=== PATIENT | male | born 1930 | race Caucasian/White ===

== ENCOUNTER 2016-06-20 05:40 | Emergency (ER) | payer OTHER ==
--- NOTE | 2016-06-20 05:53 | PDOC ---
[id number]: " AMS, NOT TALKING, GURGLING" Time Seen by Provider: 06/20/16 05:51 - History of Present Illness Initial Comments: 06/20/16 05:56 This 86-year-old man with a history of severe Parkinson's and Lewy body dementia is brought in by ambulance with altered mental status. According to family and home health aid, patient awakened suddenly at approximately 4:30 AM shouting loudly. The patient, who has been having progressive difficulty with dysarthria secondary to his chronic illness , was not able to communicate the nature of his distress.EMS called .Prior to this, he was in his usual state of health without febrile illness; he ate dinner last night in the early evening and had normal bowel movement yesterday . There has been no recent vomiting/diarrhea. No recent cough or respiratory difficulties No recent change in medication dosage according to patient's . He has been given his medications as prescribed according to home health aide and family.. He has not seen his neurologist ([facility] [place])for "quite awhile" according to . Patient has had marked worsening of his mobility in recent weeks Patient is DNR No history of previous cardiac or respiratory illnesses Pt's PMD is Dr Carcamo Past History - Past Medical History Allergies/Adverse Reactions: Allergies Allergy/AdvReac Type Severity Reaction Status Date / Time Penicillins Allergy Verified 06/20/16 05:44 Home Medications: Ambulatory Orders Carbidopa/Levodopa [Sinemet Cr 25-100 Tablet] 1 each PO BID 02/27/16 Quetiapine Fumarate [Seroquel -] 50 mg PO HS 03/01/16 Acetaminophen Oral Solution [Tylenol 160mg/5mL Oral Solution -] 650 mg PO Q6H PRN #360 ml 06/20/16 Levofloxacin [Levaquin] 500 mg PO DAILY #7 tablet 06/20/16 Dementia: Yes - Psycho/Social/Smoking Cessation Hx Anxiety: No Suicidal Ideation: No Smoking Status: No Smoking History: Never smoked Have you smoked in the past 12 months: No Number of Cigarettes Smoked Daily: 0 Hx Alcohol Use: No Drug/Substance Use Hx: No Substance Use Type: None Review of Systems - Review of Systems Able to Perform ROS?: No *Physical Exam - Physical Exam Comments: GENERAL: Elderly patient, moaning continuously, will open eyes on command Vital signs as noted. HEAD: no signs of trauma. EYES: Pupils equal 2mm, round and reactive to light, sclera anicteric, conjunctiva clear with no pallor. ENT: dry mucous membranes. Ears normal, nares patent, oropharynx clear without exudates. NECK: nontender without lymphadenopathy, JVD, or masses. LUNGS: Breath sounds equal, clear to auscultation bilaterally. No wheeze/ crackles. HEART: Regular rate and rhythm, normal S1 and S2 without murmur or rub. ABDOMEN: firm with generalized guarding; no masses palpable moans louder when upper abdomen palpated EXTREMITIES: Normal range of motion, no edema. No clubbing or cyanosis. No cords, erythema, or tenderness. NEUROLOGICAL: GCS=E3+V2+M5=10 SKIN: cool, Dry, no rashes or lesions noted. ED Treatment Course - LABORATORY CBC & Chemistry Diagram: 06/20/16 06:00 06/20/16 06:00 Medical Decision Making - Medical Decision Making 06/20/16 06:21 This 86-year-old man with a history of Parkinson's and baseline difficulty with communication presents by ambulance with sudden onset of generalized moaning upon awakening at 4:30 AM this morning. Patient was his usual state of health prior to this. Vital signs notable for an axillary temperature 100.8F,HR 97/ min BP105/96, O2 sat on 2l/min of 97% . On physical exam, patient's abdomen is firm and he moans louder when upper abdomen is palpated Full sepsis workup will be undertaken with blood and urine cultures as well as lactate/CBC/chemistry profile/UA/ influenza swab . Stat noncontrast head CT as well as noncontrast abdominal/pelvic CT will be performed Care of this patient was signed out to incoming physician at end of shift *DC/Admit/Observation/Transfer Diagnosis at time of Disposition: Pneumonia Qualifiers: Pneumonia type: due to unspecified organism Laterality: bilateral Lung location : lower lobe of lung Qualified Code(s): J18.9 - Pneumonia, unspecified organism - Discharge Dispostion Condition at time of disposition: Fair - Prescriptions Prescriptions: Levofloxacin [Levaquin] 500 mg PO DAILY #7 tablet Acetaminophen Oral Solution [Tylenol 160mg/5mL Oral Solution -] 650 mg PO Q6H PRN #360 ml PRN Reason: Fever - Referrals Referrals: Walter Carcamo MD [Staff Physician] - Call tomorrow - Patient Instructions Printed Discharge Instructions: DI for Pneumonia -- Adult Additional Instructions: Today you were evaluated for increased agitation. The emergency room evaluation was notable for a fever as well as an increased white blood cell count indicating an infection. All of the testing for infection shows a there is a pneumonia in the bases of the lungs. This pneumonia is the likely cause of the fever as well as the agitation. Treatment in the hospital with IV antibiotics was discussed but the plan is to discharge home to treat with antibiotics there and to maintain comfort and a familiar environment. Be sure to give adequate liquids, and maintain good hydration as much as possible. Levaquin 500 mg daily is the antibiotic to treat the pneumonia. A prescription for Levaquin has been sent electronically to your pharmacy, and the pharmacist has been given the option to prescribe the pills or the liquid depending on what is available. Give Tylenol every 6 hours to prevent fever. It is advisable to give this for the first 24 hours, whether or not there is fever, more as a preventative for fever. After that, you can monitor for fever and give as needed. Preventing fever can help prevent confusion and agitation. Tomorrow, Tuesday, it is advised that you call Dr. Kelsey, your primary care physician for ongoing support with treatment at home. It is also advised that you call Kaia Archuleta, the hospital health care social worker, tomorrow morning to arrange home visiting nurse services or home hospice care. Kaia can be reached at [phone]. If you're having difficulty managing the treatment at home, you may return to the emergency department at any time. [id number] ambulance services are always available should he need them.
[2016-06-20 06:23] VITALS: BMI 25.8
[2016-06-20] MEDS ORDERED: KETOROLAC TROMETHAMINE 30 MG/1 ML VIAL IVPUSH ONE (06:38)
[2016-06-20] MEDS ORDERED: KETOROLAC TROMETHAMINE 30 MG/1 ML VIAL ONE (06:43)
[2016-06-20 07:02] LABS: URINE APPEARANCE CLEAR; URINE BILIRUBIN NEGATIVE (NEGATIVE); URINE COLOR YELLOW; URINE GLUCOSE (UA) NEGATIVE (NEGATIVE); URINE KETONE NEGATIVE (NEGATIVE); URINE LEUK ESTERASE NEGATIVE (NEGATIVE); URINE NITRITE NEGATIVE (NEGATIVE); URINE PROTEIN NEGATIVE (NEGATIVE); URINE UROBILINOGEN 2.0 E.U/dl E.U./dl (0.2-1.0)
[2016-06-20 07:04] LABS: BASOPHIL 0.4 % (0-2.0); EOSINOPHIL 0.6 % (0-4.5); MCH 31.2 pg (25.7-33.7); MCHC 33.6 g/dl (32.0-35.9); MEAN CELL VOLUME 92.9 fl (80-96); MEAN PLT VOLUME 9.3 fl (7.5-11.1); NEUTROPHILS 80.7 % (42.8-82.8); PLATELET COUNT 333 K/MM3 (134-434); RDW 13.5 % (11.9-15.9); WHITE BLOOD COUNT 17.2 K/mm3 (4.0-10.0)
[2016-06-20 07:12] LABS: URINE BLOOD 1+ (NEGATIVE)
[2016-06-20 07:13] LABS: INR 1.2 (0.82-1.09); PROTHROMBIN TIME (PATIENT) 13.3 SEC (9.98-11.88)
--- NOTE | 2016-06-20 07:13 | PDOC ---
*Physical Exam - Vital Signs Last Vital Signs Temp Pulse Resp BP Pulse Ox 100.7 F H 97 H 22 105/76 97 06/20/16 05:46 06/20/16 05:46 06/20/16 05:46 06/20/16 05:46 06/20/16 05:46 - Physical Exam Comments: 06/20/16 07:11 Patient is an 86-year-old man with a history of advanced Parkinson's. He lives at home with his and home health aid. This morning he was agitated and yelling, more than usual. He was brought to the ED for evaluation. In the ED he was noted to have a low-grade temperature to 100.8 axillary. On examination now he is currently calm. Workup for a possible source of fever is in progress. Patient was endorsed to me by Dr. Veronica Robertson at change of shift at 7 AM. Studies pending: Gen. laboratory workup Chest x-ray CT scan of the head CT scan of the abdomen and pelvis EKG Urinalysis Further plans pending results. ED Treatment Course - LABORATORY CBC & Chemistry Diagram: 06/20/16 06:00 06/20/16 06:00 - ADDITIONAL ORDERS Additional order review: Laboratory Results 06/20/16 06:00 Creatine Kinase Cancelled Troponin I Cancelled 06/20/16 06:00 Influenza Types A,B Antigen (MARY) - Final Nasopharyngeal Swab - Final - Medications Given in the ED: ED Medications Discontinued Medications Generic Name Dose Route Start Last Admin Trade Name Freq PRN Reason Stop Dose Admin Ketorolac Tromethamine 30 mg 06/20/16 06:38 06/20/16 06:46 Toradol Injection - IVPUSH 06/20/16 06:39 30 mg ONCE ONE Administration Medical Decision Making - Medical Decision Making 06/20/16 08:12 Laboratory Results - last 24 hr 06/20/16 06/20/16 06/20/16 06:00 06:00 06:00 WBC RBC Hgb Hct MCV MCHC RDW Plt Count MPV Neutrophils % Lymphocytes % Monocytes % Eosinophils % Basophils % INR Sodium 141 Potassium 4.7 Chloride 104 Carbon Dioxide 28 Anion Gap 9 BUN 14 Creatinine 0.8 Creat Clearance w eGFR > 60 Random Glucose 126 H Lactic Acid Calcium 9.1 Total Bilirubin 0.7 AST 13 L ALT 14 Alkaline Phosphatase 100 Creatine Kinase Cancelled Troponin I Cancelled Total Protein 6.9 Albumin 3.1 L Lipase Urine Color Yellow Urine Appearance Clear Urine pH 5.0 Ur Specific [place] 1.023 Urine Protein Negative Urine Glucose (UA) Negative Urine Ketones Negative Urine Blood 1+ H Urine Nitrite Negative Urine Bilirubin Negative Urine Urobilinogen 2.0 e.u/dl Ur Leukocyte Esterase Negative Urine RBC 23 Urine WBC 4 Hyaline Casts 1 Urine Mucus Few 06/20/16 06/20/16 06/20/16 06:00 06:00 06:00 WBC 17.2 H RBC 4.77 Hgb 14.9 Hct 44.4 MCV 92.9 MCHC 33.6 RDW 13.5 Plt Count 333 MPV 9.3 Neutrophils % 80.7 Lymphocytes % 7.5 L Monocytes % 10.8 H Eosinophils % 0.6 Basophils % 0.4 INR 1.20 H Sodium Potassium Chloride Carbon Dioxide Anion Gap BUN Creatinine Creat Clearance w eGFR Random Glucose Lactic Acid Calcium Total Bilirubin AST ALT Alkaline Phosphatase Creatine Kinase Troponin I Total Protein Albumin Lipase 102 Urine Color Urine Appearance Urine pH Ur Specific [place] Urine Protein Urine Glucose (UA) Urine Ketones Urine Blood Urine Nitrite Urine Bilirubin Urine Urobilinogen Ur Leukocyte Esterase Urine RBC Urine WBC Hyaline Casts Urine Mucus 06/20/16 06/20/16 06:00 06:00 WBC RBC Hgb Hct MCV MCHC RDW Plt Count MPV Neutrophils % Lymphocytes % Monocytes % Eosinophils % Basophils % INR Sodium Potassium Chloride Carbon Dioxide Anion Gap BUN Creatinine Creat Clearance w eGFR Random Glucose Lactic Acid 1.848 Calcium Total Bilirubin AST ALT Alkaline Phosphatase Creatine Kinase 47 Troponin I < 0.02 Total Protein Albumin Lipase Urine Color Urine Appearance Urine pH Ur Specific [place] Urine Protein Urine Glucose (UA) Urine Ketones Urine Blood Urine Nitrite Urine Bilirubin Urine Urobilinogen Ur Leukocyte Esterase Urine RBC Urine WBC Hyaline Casts Urine Mucus Portable chest x-ray with some loss of the left diaphragm compared to baseline as well as bibasilar haziness. Officially read as left basilar infiltrate, but nonspecific. CT scan of the abdomen and pelvis shows right sided basilar consolidation with some air bronchograms consistent with right basilar pneumonia. There is also patchy infiltrate at the left base, less marked than on the right side. Laboratory studies notable for significant leukocytosis. Urinalysis negative for acute infection. Official reading of the CT abdomen and pelvis as well as the CT head is still pending. Patient is ALLERGIC to penicillin with both GI and other symptoms. Patient started on Levaquin for pneumonia with penicillin ALLERGY. *DC/Admit/Observation/Transfer Diagnosis at time of Disposition: Pneumonia Qualifiers: Pneumonia type: due to unspecified organism Laterality: bilateral Lung location : lower lobe of lung Qualified Code(s): J18.9 - Pneumonia, unspecified organism - Discharge Dispostion Condition at time of disposition: Fair Admit: Yes Decision to Admit order Date/Time: 06/20/16 08:18 endorsed to Zainab attending is Konrad
[2016-06-20 07:14] LABS: URINE HYALINE CAST 1 /lpf; URINE MUCUS FEW; URINE RBC 23 /hpf (0-3); URINE WBC 4 /hpf (3-5)
[2016-06-20] MEDS ORDERED: SODIUM CHLORIDE 1,000 ML IV SCH (07:15)
[2016-06-20 07:24] LABS: ALBUMIN 3.1 g/dl (3.4-5.0); ALK PHOS 100 U/L (45-117); ANION GAP 9 (8-16); BILIRUBIN,TOTAL 0.7 mg/dL (0.2-1.0); CALCIUM 9.1 mg/dL (8.5-10.1); CO2 28 mmol/L (21-32); CREATININE 0.8 mg/dL (0.7-1.3); GLUCOSE,RANDOM 126 mg/dL (74-106); SGPT/ALT 14 U/L (12-78); TOT PROT 6.9 g/dl (6.4-8.2)
[2016-06-20 07:26] LABS: TROPONIN I < 0.02 ng/ml (0.00-0.05)
[2016-06-20 07:30] LABS: SGOT/AST 13 U/L (15-37)
[2016-06-20] MEDS ORDERED: LEVOFLOXACIN 500 MG IVPB 100 ML IVPB ONE ×2 (08:02→08:06)
--- NOTE | 2016-06-20 08:16 | HP ---
CHIEF COMPLAINT: PCP: HISTORY OF PRESENT ILLNESS: ER course was notable for: (1) (2) (3) Recent Travel: PAST MEDICAL HISTORY: PAST SURGICAL HISTORY: Social History: Smoking: Alcohol: Drugs: Family History: Allergies Penicillins Allergy (Verified 06/20/16 05:44) HOME MEDICATIONS: Home Medications Medication Instructions Recorded Carbidopa/Levodopa [Sinemet Cr 1 each PO BID 02/27/16 25-100 Tablet] Quetiapine Fumarate [Seroquel -] 50 mg PO HS 03/01/16 REVIEW OF SYSTEMS CONSTITUTIONAL: Absent: fever, chills, diaphoresis, generalized weakness, malaise, loss of appetite, weight change HEENT: Absent: rhinorrhea, nasal congestion, throat pain, throat swelling, difficulty swallowing, mouth swelling, ear pain, eye pain, visual changes CARDIOVASCULAR: Absent: chest pain, syncope, palpitations, irregular heart rate, lightheadedness , peripheral edema RESPIRATORY: Absent: cough, shortness of breath, dyspnea with exertion, orthopnea, wheezing, stridor, hemoptysis GASTROINTESTINAL: Absent: abdominal pain, abdominal distension, nausea, vomiting, diarrhea, constipation, melena, hematochezia GENITOURINARY: Absent: dysuria, frequency, urgency, hesitancy, hematuria, flank pain, genital pain MUSCULOSKELETAL: Absent: myalgia, arthralgia, joint swelling, back pain, neck pain SKIN: Absent: rash, itching, pallor HEMATOLOGIC/IMMUNOLOGIC: Absent: easy bleeding, easy bruising, lymphadenopathy, frequent infections ENDOCRINE: Absent: unexplained weight gain, unexplained weight loss, heat intolerance, cold intolerance NEUROLOGIC: Absent: headache, focal weakness or paresthesias, dizziness, unsteady gait, seizure, mental status changes, bladder or bowel incontinence PSYCHIATRIC: Absent: anxiety, depression, suicidal or homicidal ideation, hallucinations. PHYSICAL EXAMINATION Vital Signs - 24 hr 06/20/16 06/20/16 05:46 07:22 Temperature 100.7 F H Pulse Rate 97 H Respiratory 22 Rate Blood Pressure 105/76 99/62 O2 Sat by Pulse 97 Oximetry (%) GENERAL: Awake, alert, and fully oriented, in no acute distress. HEAD: Normal with no signs of trauma. EYES: Pupils equal, round and reactive to light, extraocular movements intact, sclera anicteric, conjunctiva clear. No lid lag. EARS, NOSE, THROAT: Ears normal, nares patent, oropharynx clear without exudates. Moist mucous membranes. NECK: Normal range of motion, supple without lymphadenopathy, JVD, or masses. LUNGS: Breath sounds equal, clear to auscultation bilaterally. No wheezes, and no crackles. No accessory muscle use. HEART: Regular rate and rhythm, normal S1 and S2 without murmur, rub or gallop. ABDOMEN: Soft, nontender, not distended, normoactive bowel sounds, no guarding, no rebound, no masses. No hepatomegaly or splenomegaly. MUSCULOSKELETAL: Normal range of motion at all joints. No bony deformities or tenderness. No CVA tenderness. UPPER EXTREMITIES: 2+ pulses, warm, well-perfused. No cyanosis. No clubbing. Cap refill <2 seconds. No peripheral edema. LOWER EXTREMITIES: 2+ pulses, warm, well-perfused. No calf tenderness. No peripheral edema. NEUROLOGICAL: Cranial nerves II-XII intact. Normal speech. Normal gait. PSYCHIATRIC: Cooperative. Good eye contact. Appropriate mood and affect. SKIN: Warm, dry, normal turgor, no rashes or lesions noted. Laboratory Results - last 24 hr 06/20/16 06/20/16 06/20/16 06:00 06:00 06:00 WBC RBC Hgb Hct MCV MCHC RDW Plt Count MPV Neutrophils % Lymphocytes % Monocytes % Eosinophils % Basophils % INR Sodium 141 Potassium 4.7 Chloride 104 Carbon Dioxide 28 Anion Gap 9 BUN 14 Creatinine 0.8 Creat Clearance w eGFR > 60 Random Glucose 126 H Lactic Acid Calcium 9.1 Total Bilirubin 0.7 AST 13 L ALT 14 Alkaline Phosphatase 100 Creatine Kinase Cancelled Troponin I Cancelled Total Protein 6.9 Albumin 3.1 L Lipase Urine Color Yellow Urine Appearance Clear Urine pH 5.0 Ur Specific [place] 1.023 Urine Protein Negative Urine Glucose (UA) Negative Urine Ketones Negative Urine Blood 1+ H Urine Nitrite Negative Urine Bilirubin Negative Urine Urobilinogen 2.0 e.u/dl Ur Leukocyte Esterase Negative Urine RBC 23 Urine WBC 4 Hyaline Casts 1 Urine Mucus Few 06/20/16 06/20/16 06/20/16 06:00 06:00 06:00 WBC 17.2 H RBC 4.77 Hgb 14.9 Hct 44.4 MCV 92.9 MCHC 33.6 RDW 13.5 Plt Count 333 MPV 9.3 Neutrophils % 80.7 Lymphocytes % 7.5 L Monocytes % 10.8 H Eosinophils % 0.6 Basophils % 0.4 INR 1.20 H Sodium Potassium Chloride Carbon Dioxide Anion Gap BUN Creatinine Creat Clearance w eGFR Random Glucose Lactic Acid Calcium Total Bilirubin AST ALT Alkaline Phosphatase Creatine Kinase Troponin I Total Protein Albumin Lipase 102 Urine Color Urine Appearance Urine pH Ur Specific [place] Urine Protein Urine Glucose (UA) Urine Ketones Urine Blood Urine Nitrite Urine Bilirubin Urine Urobilinogen Ur Leukocyte Esterase Urine RBC Urine WBC Hyaline Casts Urine Mucus 06/20/16 06/20/16 06:00 06:00 WBC RBC Hgb Hct MCV MCHC RDW Plt Count MPV Neutrophils % Lymphocytes % Monocytes % Eosinophils % Basophils % INR Sodium Potassium Chloride Carbon Dioxide Anion Gap BUN Creatinine Creat Clearance w eGFR Random Glucose Lactic Acid 1.848 Calcium Total Bilirubin AST ALT Alkaline Phosphatase Creatine Kinase 47 Troponin I < 0.02 Total Protein Albumin Lipase Urine Color Urine Appearance Urine pH Ur Specific [place] Urine Protein Urine Glucose (UA) Urine Ketones Urine Blood Urine Nitrite Urine Bilirubin Urine Urobilinogen Ur Leukocyte Esterase Urine RBC Urine WBC Hyaline Casts Urine Mucus ASSESSMENT/PLAN:
[2016-06-20 08:43] VITALS: BP 130/65; PULSE 80
[2016-06-20 09:15] VITALS: TEMP 99.3
[2016-06-20] MEDS ORDERED: ACETAMINOPHEN INJECTION 100 ML IVPB ONE (09:16)
[2016-06-20] MEDS ORDERED: ACETAMINOPHEN 1000 MG/100 ML VIAL (NON FORMULARY) IVPB ONE (09:17)
--- NOTE | 2016-06-20 09:34 | PDOC ---
ED Treatment Course - LABORATORY CBC & Chemistry Diagram: 06/20/16 06:00 06/20/16 06:00 - ADDITIONAL ORDERS Additional order review: Laboratory Results 06/20/16 06/20/16 06/20/16 06:00 06:00 06:00 INR Sodium Potassium Chloride Carbon Dioxide Anion Gap BUN Creatinine Creat Clearance w eGFR Random Glucose Lactic Acid 1.848 Calcium Total Bilirubin AST ALT Alkaline Phosphatase Creatine Kinase 47 Troponin I < 0.02 Total Protein Albumin Lipase 102 Urine Color Urine Appearance Urine pH Ur Specific [place] Urine Protein Urine Glucose (UA) Urine Ketones Urine Blood Urine Nitrite Urine Bilirubin Urine Urobilinogen Ur Leukocyte Esterase Urine RBC Urine WBC Hyaline Casts Urine Mucus 06/20/16 06/20/16 06/20/16 06:00 06:00 06:00 INR 1.20 H Sodium 141 Potassium 4.7 Chloride 104 Carbon Dioxide 28 Anion Gap 9 BUN 14 Creatinine 0.8 Creat Clearance w eGFR > 60 Random Glucose 126 H Lactic Acid Calcium 9.1 Total Bilirubin 0.7 AST 13 L ALT 14 Alkaline Phosphatase 100 Creatine Kinase Cancelled Troponin I Cancelled Total Protein 6.9 Albumin 3.1 L Lipase Urine Color Urine Appearance Urine pH Ur Specific [place] Urine Protein Urine Glucose (UA) Urine Ketones Urine Blood Urine Nitrite Urine Bilirubin Urine Urobilinogen Ur Leukocyte Esterase Urine RBC Urine WBC Hyaline Casts Urine Mucus 06/20/16 06:00 INR Sodium Potassium Chloride Carbon Dioxide Anion Gap BUN Creatinine Creat Clearance w eGFR Random Glucose Lactic Acid Calcium Total Bilirubin AST ALT Alkaline Phosphatase Creatine Kinase Troponin I Total Protein Albumin Lipase Urine Color Yellow Urine Appearance Clear Urine pH 5.0 Ur Specific [place] 1.023 Urine Protein Negative Urine Glucose (UA) Negative Urine Ketones Negative Urine Blood 1+ H Urine Nitrite Negative Urine Bilirubin Negative Urine Urobilinogen 2.0 e.u/dl Ur Leukocyte Esterase Negative Urine RBC 23 Urine WBC 4 Hyaline Casts 1 Urine Mucus Few 06/20/16 06:00 Influenza Types A,B Antigen (MARY) - Final Nasopharyngeal Swab - Final 06/20/16 06:00 RBC 4.77 MCV 92.9 MCHC 33.6 RDW 13.5 MPV 9.3 Neutrophils % 80.7 Lymphocytes % 7.5 L Monocytes % 10.8 H Eosinophils % 0.6 Basophils % 0.4 - Medications Given in the ED: ED Medications Discontinued Medications Generic Name Dose Route Start Last Admin Trade Name Freq PRN Reason Stop Dose Admin Acetaminophen 1,000 mg 06/20/16 09:17 06/20/16 09:20 Ofirmev Injection - IVPB 06/20/16 09:18 1,000 mg ONCE ONE Administration Levofloxacin 100 mls @ 100 mls/hr 06/20/16 08:02 06/20/16 08:08 Levaquin 500 Mg Premixed Ivpb - IVPB 06/20/16 09:01 100 mls/hr ONCE ONE Administration Ketorolac Tromethamine 30 mg 06/20/16 06:38 06/20/16 06:46 Toradol Injection - IVPUSH 06/20/16 06:39 30 mg ONCE ONE Administration Medical Decision Making - Medical Decision Making 06/20/16 09:26 I had an ongoing discussion with the patient's and son. The patient is DNR and his quality of life is very poor. They state she gets increasing confusion and agitation when he is in the hospital and he suffers greatly when hospitalized. Given his advanced age and advanced Parkinson's disease and the primary goal of care being to maintain comfort, the family wishes to take him home for palliative care. They would like to continue oral antibiotics with Levaquin for his pneumonia. They understand that his condition may deteriorate , but they prefer that he be at home, surrounded by family to maintain comfort rather than to admit him to the hospital for more aggressive IV antibiotic therapy given that he will be more uncomfortable away from his home. Risks, benefits, alternatives all discussed with the patient's and son. They strongly prefer an attempted home care and they understand fully the risks and benefits of this approach. Patient will be treated with Levaquin oral solution and Tylenol oral solution. The family has been advised to contact social work tomorrow morning to arrange for home hospice and home VNS. They will contact their primary care physician, Dr. Walter Carcamo, tomorrow morning as well. *DC/Admit/Observation/Transfer Diagnosis at time of Disposition: Pneumonia Qualifiers: Pneumonia type: due to unspecified organism Laterality: bilateral Lung location : lower lobe of lung Qualified Code(s): J18.9 - Pneumonia, unspecified organism - Discharge Dispostion Disposition: HOME Condition at time of disposition: Poor Admit: No Decision to Admit order Date/Time: Decision to Admit Order Category Date Time Status Decision to Admit to Hospital Routine Admission 06/20/16 08:19 Active - Prescriptions Prescriptions: Levofloxacin [Levaquin] 500 mg PO DAILY #7 tablet Acetaminophen Oral Solution [Tylenol 160mg/5mL Oral Solution -] 650 mg PO Q6H PRN #360 ml PRN Reason: Fever - Referrals Referrals: Walter Carcamo MD [Staff Physician] - Call tomorrow - Patient Instructions Printed Discharge Instructions: DI for Pneumonia -- Adult Additional Instructions: Today you were evaluated for increased agitation. The emergency room evaluation was notable for a fever as well as an increased white blood cell count indicating an infection. All of the testing for infection shows a there is a pneumonia in the bases of the lungs. This pneumonia is the likely cause of the fever as well as the agitation. Treatment in the hospital with IV antibiotics was discussed but the plan is to discharge home to treat with antibiotics there and to maintain comfort and a familiar environment. Be sure to give adequate liquids, and maintain good hydration as much as possible. Levaquin 500 mg daily is the antibiotic to treat the pneumonia. A prescription for Levaquin has been sent electronically to your pharmacy, and the pharmacist has been given the option to prescribe the pills or the liquid depending on what is available. Give Tylenol every 6 hours to prevent fever. It is advisable to give this for the first 24 hours, whether or not there is fever, more as a preventative for fever. After that, you can monitor for fever and give as needed. Preventing fever can help prevent confusion and agitation. Tomorrow, Tuesday, it is advised that you call Dr. Kelsey, your primary care physician for ongoing support with treatment at home. It is also advised that you call Kaia Archuleta, the hospital social media manager, tomorrow morning to arrange home visiting nurse services or home hospice care. Kaia can be reached at [phone]. If you're having difficulty managing the treatment at home, you may return to the emergency department at any time. 290 ambulance services are always available should he need them.
--- NOTE | 2016-06-20 22:19 | EKG ---
Test Reason : Blood Pressure : / mmHG Vent. Rate : 082 BPM Atrial Rate : 082 BPM P-R Int : 150 ms QRS Dur : 094 ms QT Int : 382 ms P-R-T Axes : 054 -47 047 degrees QTc Int : 446 ms SINUS RHYTHM WITH OCCASIONAL PREMATURE VENTRICULAR COMPLEXES LEFT AXIS DEVIATION ABNORMAL ECG NO PREVIOUS ECGS AVAILABLE Confirmed by CITLALI BOWEN MD ([id number]) on 06/20/2016 10:19:22 PM Referred By: MD KELLEY Confirmed By:CITLALI BOWEN MD
== END 2016-06-20 11:00 | disposition home or self-care (01) ==
LOC: FER 05:40
PROC: 3E03329 Introduction of Other Anti-infective into Peripheral Vein, Percutaneous Approach (ICD-10-PCS; principal; 2016-06-20)
PROC: 3E033NZ Introduction of Analgesics, Hypnotics, Sedatives into Peripheral Vein, Percutaneous Approach (ICD-10-PCS; 2016-06-20)
PROC: 3E0333Z Introduction of Anti-inflammatory into Peripheral Vein, Percutaneous Approach (ICD-10-PCS; 2016-06-20)
PROC: 3E0337Z Introduction of Electrolytic and Water Balance Substance into Peripheral Vein, Percutaneous Approach (ICD-10-PCS; 2016-06-20)
DX: J18.9 Pneumonia, unspecified organism (principal); G20 Parkinson's disease; G31.83 Neurocognitive disorder with Lewy bodies; F02.80 Dementia in other diseases classified elsewhere, unspecified severity, without behavioral disturbance, psychotic disturbance, mood disturbance, and anxiety
CPT/HCPCS: 36415; 70450-TC; 71010-TC; 74176-TC; 80053; 81003; 81015; 82550; 83605; 83690; 84484; 85025; 85610; 87040; 87086; 87804; 93005; 96361; 96365; 96375; 99283-25